=== PATIENT | female | born 1980 | race Caucasian/White ===

== ENCOUNTER 2016-09-07 10:51 | Outpatient (CLI) | payer OTHER | END 2016-09-07 10:52 | disposition home or self-care (01) | DX: M79.651 Pain in right thigh (principal) ==

== ENCOUNTER 2019-04-15 10:00 | Emergency (ER) | payer OTHER ==
--- NOTE | 2019-04-15 10:21 | ED Physician Documentation ---
PD HPI LOWER EXT INJURY - Stated complaint Stated Complaint: ANKLE PX - Chief complaint Chief Complaint: Ext Problem - History obtained from History obtained from: Patient - History of Present Illness PD HPI LOW EXT INJURY LOCATION: Right, Ankle (lateral malleolus) Type of injury: No: Fall, Twist (she was running 2 weeks ago without notable injury, but felt onset of ankle pain soon after. The pain has continued with running and now also with just walking and ROM. No redness nor rash. No numbness.) Timing - onset: How many weeks ago (2) Timing - duration: Weeks (2) Timing - details: Gradual onset, Still present, Waxing and waning Improved by: Rest Worsened by: Moving, Other (running). No: Palpating Associated symptoms: No: Weakness, Numbness, Swelling Similar symptoms before: Has not had sx before Review of Systems : reports: Now EGA (27.5 weeks) Skin: denies: Rash, Lesions, Abrasion (s), Laceration (s) Neurologic: denies: Focal weakness, Numbness PD PAST MEDICAL HISTORY - Past Medical History Past Medical History: No - Past Surgical History Past Surgical History: No - Allergies Allergies/Adverse Reactions: Allergies Allergy/AdvReac Type Severity Reaction Status Date / Time No Known Drug Allergies Allergy Verified 04/15/19 10:09 - Social History Does the pt smoke?: No Smoking Status: Never smoker PD ED PE NORMAL - Vitals Vital signs reviewed: Yes - General General: Alert and oriented X 3, No acute distress, Well developed/nourished - Derm Derm: Normal color, Warm and dry, No rash - Extremities Extremities: Other (right ankle tender at lateral malleolus without deformity. Not tender inferior to it. ) - Neuro Neuro: No motor deficit, No sensory deficit Results - Vitals Vitals: Vital Signs - 24 hr 04/15/19 04/15/19 10:07 12:50 Temperature 36.4 C L 36.7 C Heart Rate 92 73 Respiratory 19 12 Rate Blood Pressure 121/64 119/59 L O2 Saturation 99 100 Oxygen O2 Source Room air - Rads (name of study) right ankle Radiology: Prelim report reviewed (no acute bony process), See rad report PD MEDICAL DECISION MAKING - ED course Complexity details: reviewed results, considered differential (xray is okay - no stress fracture. Presume tendonitis. ), d/w patient Departure - Departure Disposition: 01 Home, Self Care Clinical Impression: Ankle tendinitis Condition: Stable Record reviewed to determine appropriate education?: Yes Instructions: ED Sprain Ankle Comments: Consider some anti-inflammatory such as naproxen or ibuprofen twice daily for the next 5 or 6 days. Do not use it after that time. Otherwise Tylenol as needed for pains. Use walking cast boot when up and around to provide better support. There is no obvious fractures or bony abnormality so presume its tendinitis of the ankle. I presume this would improve with better support and some short-term anti-inflammatories. Follow-up with your primary care if still not better over the next week. Discharge Date/Time: 04/15/19 12:58
[2019-04-15 12:50] VITALS: BP 119/59
--- NOTE | 2019-04-16 09:03 | XRAY Report ---
Reason: lateral ankle pain after running Procedure Date: 04/15/2019 Accession Number: [id number] / [id number] Procedure: XR - Ankle 3 View LT CPT Code: FULL RESULT: EXAM: LEFT ANKLE RADIOGRAPHY EXAM DATE: 04/15/2019 11:32 AM. CLINICAL HISTORY: Lateral ankle pain after running. COMPARISON: None. TECHNIQUE: 3 views. FINDINGS: Bones: Normal. No fractures or bone lesions. No periosteal reaction. No focal sclerosis. Joints: Normal. No effusion. No subluxations. The ankle mortise is normally aligned. Soft Tissues: Soft tissue prominence/edema. IMPRESSION: 1. No acute osseous abnormalities. No radiographic evidence of stress reaction. [facility]
== END 2019-04-15 12:58 | disposition home or self-care (01) ==
LOC: ED 10:00
DX: O99.89 Other specified diseases and conditions complicating pregnancy, childbirth and the puerperium (principal); M77.9 Enthesopathy, unspecified; Z3A.27 27 weeks gestation of pregnancy
CPT/HCPCS: 99282; 99283

== ENCOUNTER 2019-04-25 08:00 | Outpatient (CLI) | payer OTHER ==
[2019-04-25 21:27] LABS: CANDIDA GROUP DNA POSITIVE (NEGATIVE); CANDIDA KRUSEI DNA NEGATIVE (NEGATIVE); TRICHOMONAS VAGINALIS DNA NEGATIVE (NEGATIVE)
== END 2019-04-25 08:01 | disposition home or self-care (01) ==
LOC: LAB.R 08:00
PROVIDERS: ATTEND Nurse Practitioner Obstetrics & Gynecology
DX: R30.0 Dysuria (principal); N76.0 Acute vaginitis
CPT/HCPCS: 87086; 87661; 87801

== ENCOUNTER 2019-04-25 11:10 | Outpatient (CLI) | payer OTHER ==
[2019-04-25 12:46] LABS: HGB - HEMOGLOBIN 10.6 g/dL (12.0-16.0); MEAN CORPUSCULAR VOLUME 94.3 fL (81.0-99.0); MEAN PLATELET VOLUME 9.7 fL (7.9-10.8); RED BLOOD COUNT 3.31 10^6/uL (4.20-5.40); RED CELL DISTRIBUTION WIDTH 13.6 % (12.0-15.0); WHITE BLOOD COUNT 6.6 x10^3/uL (4.8-10.8)
== END 2019-04-25 11:11 | disposition home or self-care (01) ==
LOC: LAB 11:10
PROVIDERS: ATTEND Nurse Practitioner Obstetrics & Gynecology
DX: Z36.89 Encounter for other specified antenatal screening (principal); R30.0 Dysuria; N76.0 Acute vaginitis
CPT/HCPCS: 36415; 82950; 85027; 86850; 87086; 87661; 87801

== ENCOUNTER 2019-06-11 08:00 | Outpatient (CLI) | payer OTHER ==
[2019-06-11 18:38] LABS: TRICHOMONAS VAGINALIS DNA NEGATIVE (NEGATIVE)
== END 2019-06-11 23:59 | disposition home or self-care (01) ==
LOC: LAB.R 08:00
PROVIDERS: ATTEND Nurse Practitioner Obstetrics & Gynecology
DX: Z36.89 Encounter for other specified antenatal screening (principal)
CPT/HCPCS: 87491; 87591; 87661; 87797